=== PATIENT | male | born 1975 ===

== ENCOUNTER 2024-01-18 18:01 | Outpatient (REF) | payer MEDICAID, SELFPAY ==
[2024-01-18 17:31] LABS: ALT 28 U/L (16-63); AST 33 U/L (15-37); Albumin 2.9 g/dL (3.4-5.0); Alkaline Phosphatase 124 U/L (46-116); Anion Gap 8.9 mmol/L (3-11); BUN 13 mg/dL (7-18); Bilirubin, Total 1.36 mg/dL (0.2-1.0); CO2 24.1 mmol/L (21.0-32.0); CREATININE 0.9 mg/dL (0.70-1.30); Calcium 8.7 mg/dL (8.5-10.1); Chloride 110 mmol/L (98-107); Estimated GFR 105.35 (mL/min/1.73m2); Glucose 162 mg/dL (74-106); Magnesium 1.9 mg/dL (1.8-2.4); Potassium 4.2 mmol/L (3.5-5.1); Sodium 143 mmol/L (136-145); Total Protein 6.3 g/dL (6.4-8.2)
--- OUTSIDE RECORDS SUMMARY | 2024-01-18 18:02 | XMS_ITS | Continuity of Care Document ---
Author Name [facility] Organization [facility] Care Team Providers Care Agency Service Representative Name Role Phone [facility] Unavailable Unavailable Problems Combined list of problems from Department of Defense and Veterans Affairs facilities. It does not include entries that were removed or entered in error. Problem Status Onset Date Problem Type Date of Resolution Comments Source Diagnosis: ICD-10-CM R68.89 Other general symptoms and signs Active Diagnosis [facility] Immunizations Combined list of available immunizations from the Department of Defense and Veterans Affairs facilities. Immunization Series Date Given Administered By Site Reaction Lot Number CVX Code Drug It Operations Specialist Status Comments Source HEP A, ADULT 2023 52 complet ed [facility] A, ADULT 2023 52 complet ed [facility] Encounters Combined list of: 1) Encounters from Department of Veterans Affairs facilities going back up to thelast 18 months. 2) Encounters from the Department of Defense facilities going back up to 280 months. Location Location Details Encounter Type Encounter Number Reason For Visit Attending Provider ADM Date DC Date Status Disposition Source [facility] Outpatient Encounter [id number] 11/29 [facility] En[facility] [id number] 12/29 [facility] [id number] 01/09 [facility] [id number] 01/10 [facility] En[facility] [id number] 01/15 [facility] HC PRO PHONE CALL 11-20 MIN [id number] Diagnos is: ICD-10- CM R68.89 Other general symptom s and signs<b r/> CHIQUITA MCDONALD A 01/15 [facility] [place] [facility] Procedures Combined list of: 1) Procedures from Department of Veterans Affairs facilities going back up to thelast 18 months, not all [place] non-surgical procedures are included; 2) All procedures from the Department of Defense facilities. Procedure Procedure Type Code Date Perfomer Comments Sourc e INJECTION PROCEDURE FOR RETROGRADE URETHROCYSTOGRAPHY 09/10/2003 DoD INJECTION PROCEDURE FOR RETROGRADE URETHROCYSTOGRAPHY 07/13/2003 DoD INJECTION, METOCLOPRAMIDE HCL, UP TO 10 MG 07/01/2003 DoD UNCLASSIFIED DRUGS 06/30/2003 Do D INSERTION OF TEMPORARY INDWELLING BLADDER CATHETER; COMPLICATED (EG, ALTERED ANATOMY, FRACTURED CATHETER/BALLOON) 06/11/2003 DoD URINARY DRAINAGE BAG, LEG OR ABDOMEN, LATEX, WITH OR WITHOUT TUBE, WITH STRAPS, EACH 05/12/2003 DoD URINARY DRAINAGE BAG, LEG OR ABDOMEN, LATEX, WITH OR WITHOUT TUBE, WITH STRAPS, EACH 04/14/2003 DoD INSERTION OF TEMPORARY INDWELLING BLADDER CATHETER; COMPLICATED (EG, ALTERED ANATOMY, FRACTURED CATHETER/BALLOON) 03/13/2003 DoD URINARY SUSPENSORY WITH LEG BAG, WITH OR WITHOUT TUBE, EACH 03/12/2003 DoD RIGID PROCTOSIGMOIDOSCOPY 02/17/2003 DoD INJECTION, HYDROMORPHONE, UP TO 4 MG 02/16/2003 DoD DIAGNOSTIC ULTRASOUND OF ABDOMEN AND RETROPERITONEUM 02/10/2003 DoD OTHER OPEN REDUCTION OF FACIAL FRACTURE 02/10/2003 [facility] OPEN REDUCTION OF MALAR AND ZYGOMATIC FRACTURE 02/10/2003 [facility] OTHER SUPRAPUBIC CYSTOSTOMY 02/10/2003 [facility] OTHER CYSTOSCOPY 02/10/2003 [facility] AUTOMATIC BLOOD PRESSURE MONITOR 09/26/2002 DoD EXCISION OF RIB, PARTIAL 04/03/2001 DoD GROUP PSYCHOTHERAPY (OTHER THAN OF A MULTIPLE-FAMILY GROUP) 01/03/2001 DoD GROUP PSYCHOTHERAPY (OTHER THAN OF A MULTIPLE-FAMILY GROUP) 12/27/2000 DoD GROUP PSYCHOTHERAPY (OTHER THAN OF A MULTIPLE-FAMILY GROUP) 12/20/2000 DoD GROUP PSYCHOTHERAPY (OTHER THAN OF A MULTIPLE-FAMILY GROUP) 12/18/2000 DoD GROUP PSYCHOTHERAPY (OTHER THAN OF A MULTIPLE-FAMILY GROUP) 12/06/2000 DoD GROUP PSYCHOTHERAPY (OTHER THAN OF A MULTIPLE-FAMILY GROUP) 12/04/2000 DoD GROUP PSYCHOTHERAPY (OTHER THAN OF A MULTIPLE-FAMILY GROUP) 11/22/2000 DoD GROUP PSYCHOTHERAPY (OTHER THAN OF A MULTIPLE-FAMILY GROUP) 11/20/2000 DoD GROUP PSYCHOTHERAPY (OTHER THAN OF A MULTIPLE-FAMILY GROUP) 11/15/2000 DoD GROUP PSYCHOTHERAPY (OTHER THAN OF A MULTIPLE-FAMILY GROUP) 11/13/2000 DoD GROUP PSYCHOTHERAPY (OTHER THAN OF A MULTIPLE-FAMILY GROUP) 11/08/2000 [facility] THERAPEUTIC PROCEDURE, 1 OR MORE AREAS, EACH 15 MINUTES; THERAPEUTIC EXERCISES TO DEVELOP STRENGTH AND ENDURANCE, RANGE OF MOTION AND FLEXIBILITY 11/02/2000 DoD GROUP PSYCHOTHERAPY (OTHER THAN OF A MULTIPLE-FAMILY GROUP) 08/23/2000 DoD GROUP PSYCHOTHERAPY (OTHER THAN OF A MULTIPLE-FAMILY GROUP) 08/16/2000 [facility] PSYCHIATRIC DIAGNOSTIC INTERVIEW EXAMINATION 06/29/2000 [facility] INDIVIDUAL PSYCHOTHERAPY, INSIGHT ORIENTED, BEHAVIOR MODIFYING AND/OR SUPPORTIVE, IN AN OFFICE OR OUTPATIENT FACILITY, APPROXIMATELY 20 TO 30 MINUTES [id number] WITH THE PATIENT 06/19/2000 DoD INTERACTIVE GROUP PSYCHOTHERAPY 06/12/2000 DoD GROUP PSYCHOTHERAPY (OTHER THAN OF A MULTIPLE-FAMILY GROUP) 05/21/2000 DoD GROUP PSYCHOTHERAPY (OTHER THAN OF A MULTIPLE-FAMILY GROUP) 05/17/2000 [facility] PHYS/OTH QUALIFIED HEALTH CERTIFIED FORKLIFT OPERATOR QUALIFIED,EDUCATION,TRAIN,LIC ENSURE/REGULATION (WHEN APPLICABLE) EDUC SER RENDERED TO PATS IN A GRP SETTING (EG,,OBESITY,OR DIABETIC INSTRUCT) 05/16/2000 DoD GROUP PSYCHOTHERAPY (OTHER THAN OF A MULTIPLE-FAMILY GROUP) 05/15/2000 DoD GROUP PSYCHOTHERAPY (OTHER THAN OF A MULTIPLE-FAMILY GROUP) 05/14/2000 DoD PHYS/OTH QUALIFIED HEALTH CERTIFIED FORKLIFT OPERATOR QUALIFIED,EDUCATION,TRAIN,LIC ENSURE/REGULATION (WHEN APPLICABLE) EDUC SER RENDERED TO PATS IN A GRP SETTING (EG,,OBESITY,OR DIABETIC INSTRUCT) 05/11/2000 DoD GROUP PSYCHOTHERAPY (OTHER THAN OF A MULTIPLE-FAMILY GROUP) 05/11/2000 DoD GROUP PSYCHOTHERAPY (OTHER THAN OF A MULTIPLE-FAMILY GROUP) 05/10/2000 DoD PHYS/OTH QUALIFIED HEALTH CERTIFIED FORKLIFT OPERATOR QUALIFIED,EDUCATION,TRAIN,LIC ENSURE/REGULATION (WHEN APPLICABLE) EDUC SER RENDERED TO PATS IN A GRP SETTING (EG,,OBESITY,OR DIABETIC INSTRUCT) 05/09/2000 DoD GROUP PSYCHOTHERAPY (OTHER THAN OF A MULTIPLE-FAMILY GROUP) 05/09/2000 DoD GROUP PSYCHOTHERAPY (OTHER THAN OF A MULTIPLE-FAMILY GROUP) 05/08/2000 DoD PHYS/OTH QUALIFIED HEALTH CERTIFIED FORKLIFT OPERATOR QUALIFIED,EDUCATION,TRAIN,LIC ENSURE/REGULATION (WHEN APPLICABLE) EDUC SER RENDERED TO PATS IN A GRP SETTING (EG,,OBESITY,OR DIABETIC INSTRUCT) 05/07/2000 DoD GROUP PSYCHOTHERAPY (OTHER THAN OF A MULTIPLE-FAMILY GROUP) 05/07/2000 DoD GROUP PSYCHOTHERAPY (OTHER THAN OF A MULTIPLE-FAMILY GROUP) 05/04/2000 DoD GROUP PSYCHOTHERAPY (OTHER THAN OF A MULTIPLE-FAMILY GROUP) 05/03/2000 DoD PHYS/OTH QUALIFIED HEALTH CERTIFIED FORKLIFT OPERATOR QUALIFIED,EDUCATION,TRAIN,LIC ENSURE/REGULATION (WHEN APPLICABLE) EDUC SER RENDERED TO PATS IN A GRP SETTING (EG,,OBESITY,OR DIABETIC INSTRUCT) 05/02/2000 DoD GROUP PSYCHOTHERAPY (OTHER THAN OF A MULTIPLE-FAMILY GROUP) 05/01/2000 DoD GROUP PSYCHOTHERAPY (OTHER THAN OF A MULTIPLE-FAMILY GROUP) 04/30/2000 DoD GROUP PSYCHOTHERAPY (OTHER THAN OF A MULTIPLE-FAMILY GROUP) 04/05/2000 DoD GROUP PSYCHOTHERAPY (OTHER THAN OF A MULTIPLE-FAMILY GROUP) 03/26/2000 DoD INTERACTIVE GROUP PSYCHOTHERAPY 02/08/2000 DoD GROUP PSYCHOTHERAPY (OTHER THAN OF A MULTIPLE-FAMILY GROUP) 02/07/2000 DoD INTERACTIVE GROUP PSYCHOTHERAPY 12/07/1999 DoD INTERACTIVE GROUP PSYCHOTHERAPY 11/23/1999 [facility] INDIVIDUAL PSYCHOTHERAPY, INSIGHT ORIENTED, BEHAVIOR MODIFYING AND/OR SUPPORTIVE, IN AN OFFICE OR OUTPATIENT FACILITY, APPROXIMATELY 75 TO 80 MINUTES [id number] WITH THE PATIENT 11/21/1999 [facility] DETERMINATION OF VENOUS PRESSURE 05/06/1999 [facility] Social History Combined list of available smoking, tobacco, and other social history from Department of Defense and Veterans Affairs facilities. Social History Type Response Date Comment Sourc e Tobacco smoking status [facility] VA-TOBACCO USE EVERY DAY CIGARETTES 01/16/2024 [facility] History of tobacco use VA-TOBACCO NEVER USED OTHER TYPE 01/16/2024 [facility] This section is an empty social history section. DoD Plan of Care List of future care activities from Department of Veterans Affairs facilities. Additional future care activities may be listed in the Assessment and Plan section. Date/Time Care Activity Care Activity Detail Facili ty 01/23/2024 AMBULATORY - NONE AMBULATORY - NONE [facility] 01/23/2024 AMBULATORY - MEDICINE AMBULATORY - MEDICI [facility] 01/23/2024 AMBULATORY - NONE AMBULATORY - NONE [facility] 01/23/2024 Laboratory - Senior Data Modeler ry Order P4 GLU,BUN,CREAT,LYTES,CA LT GREEN(LI HEP) PLASMA [facility] 01/23/2024 Laboratory - Senior Data Modeler ry Order LIVER PROFILE LT GREEN(LI HEP) PLASMA [facility] 01/23/2024 Laboratory - Senior Data Modeler ry Order LIPOPROTEIN CHOLESTEROL FRACT. PANEL LT GREEN(LI HEP) PLASMA [facility] 01/23/2024 Laboratory - Senior Data Modeler ry Order THYROID TESTING CASCADE BLOOD(GOLD) SERUM [facility] 01/23/2024 Laboratory - Senior Data Modeler ry Order CBC NO DIFF BLOOD(LAV-EDTA-WB) [facility] 01/23/2024 Laboratory - Senior Data Modeler ry Order GLYCOHEMOGLOBIN (A1C ONLY) BLOOD(LAV-EDTA-WB) [facility]
--- OUTSIDE RECORDS SUMMARY | 2024-01-18 18:02 | XMS_ITS | Encounter Summary ---
Author Name [facility] [place] [facility] [place] Address [address] [place] [address] Selected Encounter This section includes the information on record at [place] for the Encounter. Date/Time Encounter Type Encounter Description Reason Pro vider Source Jan 11, 2024 09:16 AM Outpatient Encounter ADMIN PAT ACTIVTIES (INOCENCIONONCT) IHE Encounter Template Text not used by [place] Plan of Treatment: Future Appointments (+ 6 months) and Future Tests (+/- 45 days) The Plan of Treatment section includes future care activities for the patient from all [place] treatmentfacilities. This section includes future appointments and future orders which are active, pending or scheduled. Future Appointments This section includes appointments that were scheduled to occur 6 months from the date of the Encounter, up to a maximum of 20 appointments. The data comes from all [place] treatment facilities. Appointment Date/Time Appointment Type Appointme nt Facility Name Jan 16, 2024 10:00 AM AMBULATORY - NONE [facility] Jan 23, 2024 01:00 PM AMBULATORY - NONE [facility] Jan 23, 2024 01:00 PM AMBULATORY - MEDICINE [facility] Jan 23, 2024 02:00 PM AMBULATORY - NONE [facility] Active, Pending, and Scheduled Orders This section includes a listing of several types of active, pending, and scheduled orders, including clinic medications orders, diagnostic test orders, procedure orders and consult orders; where the start date of the order is 45 days before the date of the Encounter or 45 days after the date of theEncounter. The data comes from all [place] treatment facilities. Test Date/Time Test Type Test Details Facility Name Jan 23, 2024 12:00 AM Laboratory - Chemistry Order P4 GLU,BUN,CREAT,LYTES,CA LT GREEN(LI HEP) [facility] Jan 23, 2024 12:00 AM Laboratory - Chemistry Order LIVER PROFILE LT GREEN(LI HEP) PLASMA [facility] Jan 23, 2024 12:00 AM Laboratory - Chemistry Order LIPOPROTEIN CHOLESTEROL FRACT. PANEL LT GREEN(LI HEP) PLASMA [facility] Jan 23, 2024 12:00 AM Laboratory - Chemistry Order THYROID TESTING CASCADE BLOOD(GOLD) SERUM [facility] Jan 23, 2024 12:00 AM Laboratory - Chemistry Order CBC NO DIFF BLOOD(LAV-EDTA-WB) [facility] Jan 23, 2024 10:03 AM Laboratory - Chemistry Order GLYCOHEMOGLOBIN (A1C ONLY) BLOOD(LAV-EDTA-WB) [facility] Encounter Notes: All associated encounter notes This section contains the clinical notes associated to the Encounter. Date/Time Encounter Note(s) Provider Source Jan 07, 2024 09:16 AM NONVA NOTE: LOCAL TITLE: NonVA Medical Records STANDARD TITLE: NONVA NOTE DATE OF NOTE: JAN 07, 2024@09:16 ENTRY DATE: JAN 11, 2024@09:16:28 AUTHOR: JOELLE POWER COSIGNER: URGENCY: STATUS: COMPLETED NONVA 12/26/2023 & 01/03/2024 - LAB RESULTS 01/07/2024 - PRIMARY CARE OFFCE VISIT W/LABS [facility] MEDICINE /irene/ Joelle Power MRT Signed: 01/11/2024 09:18 Receipt Acknowledged By: 01/11/2024 10:38 /irene/ WARD URIBE M.D INTERNAL MEDICINE, [facility] JOELLE POWER [facility]
--- OUTSIDE RECORDS SUMMARY | 2024-01-18 18:02 | XMS_ITS | Encounter Summary ---
Author Name [facility] [place] [facility] [place] [facility] [place] Address [address] [place] [id number] Selected Encounter This section includes the information on record at [place] for the Encounter. Date/Time Encounter Type Encounter Description Reason Pro vider Source Dec 30, 2023 12:00 AM Outpatient Encounter EVENT (HISTORICAL) IHE Encounter Template Text not used by [place] Plan of Treatment: Future Appointments (+ 6 months) and Future Tests (+/- 45 days) The Plan of Treatment section includes future care activities for the patient from all [place] treatmentfacilities. This section includes future appointments and future orders which are active, pending or scheduled. Future Appointments This section includes appointments that were scheduled to occur 6 months from the date of the Encounter, up to a maximum of 20 appointments. The data comes from all [place] treatment facilities. Appointment Date/Time Appointment Type Appointme nt Facility Name Jan 16, 2024 10:00 AM AMBULATORY - NONE [facility] Jan 23, 2024 01:00 PM AMBULATORY - NONE [facility] Jan 23, 2024 01:00 PM AMBULATORY - MEDICINE [facility] Jan 23, 2024 02:00 PM AMBULATORY - NONE [facility] Active, Pending, and Scheduled Orders This section includes a listing of several types of active, pending, and scheduled orders, including clinic medications orders, diagnostic test orders, procedure orders and consult orders; where the start date of the order is 45 days before the date of the Encounter or 45 days after the date of theEncounter. The data comes from all [place] treatment facilities. Test Date/Time Test Type Test Details Facility Name Jan 23, 2024 12:00 AM Laboratory - Chemistry Order P4 GLU,BUN,CREAT,LYTES,CA LT GREEN(LI HEP) PLASMA SP [facility] Jan 23, 2024 12:00 AM Laboratory - Chemistry Order LIVER PROFILE LT GREEN(LI HEP) PLASMA [facility] Jan 23, 2024 12:00 AM Laboratory - Chemistry Order LIPOPROTEIN CHOLESTEROL FRACT. PANEL LT GREEN(LI HEP) PLASMA [facility] Jan 23, 2024 12:00 AM Laboratory - Chemistry Order THYROID TESTING CASCADE BLOOD(GOLD) [facility]UM [facility] Jan 23, 2024 12:00 AM Laboratory - Chemistry Order CBC NO DIFF BLOOD(LAV-EDTA-WB) [facility] Jan 23, 2024 10:03 AM Laboratory - Chemistry Order GLYCOHEMOGLOBIN (A1C ONLY) BLOOD(LAV-EDTA-WB) [facility] Immunizations: All administered on the encounter date This section contains immunizations associated to the Encounter. Immunization Series Date Issued Reaction Comments HEP A, ADULT Dec 30, 2023
--- OUTSIDE RECORDS SUMMARY | 2024-01-18 18:02 | XMS_ITS | Encounter Summary ---
Author Name [facility] [place] Organization [facility] [place] Address [address] [place] [address] Selected Encounter This section includes the information on record at [place] for the Encounter. Date/Time Encounter Type Encounter Description Reason Provider Source Jan 16, 2024 10:00 AM HC PRO PHONE CALL 11-20 MIN TELEPHONE PRIMARY CARE ICD-10-CM R68.89 Other general symptoms and signs CHARLENE MCDONALD RA [facility] Encounter Template Text not used by VA Assessments - Encounter Diagnoses This section includes the primary and secondary diagnoses documented for the Encounter. Date/Time Primary/Secondary Diagnosis Diagnosis Name Provider Source Jan 16, 2024 10:00 AM PRIMARY Other general symptoms and signs ULISES MCDONALD [facility] Plan of Treatment: Future Appointments (+ 6 months) and Future Tests (+/- 45 days) The Plan of Treatment section includes future care activities for the patient from all [place] treatmentfacilities. This section includes future appointments and future orders which are active, pending or scheduled. Future Appointments This section includes appointments that were scheduled to occur 6 months from the date of the Encounter, up to a maximum of 20 appointments. The data comes from all [place] treatment facilities. Appointment Date/Time Appointment Type Appointme nt Facility Name Jan 23, 2024 01:00 PM AMBULATORY - NONE [facility] Jan 23, 2024 01:00 PM AMBULATORY - MEDICINE [facility] Jan 23, 2024 02:00 PM AMBULATORY - NONE [facility] Active, Pending, and Scheduled Orders This section includes a listing of several types of active, pending, and scheduled orders, including clinic medications orders, diagnostic test orders, procedure orders and consult orders; where the start date of the order is 45 days before the date of the Encounter or 45 days after the date of theEncounter. The data comes from all [facility] facilities. Test Date/Time Test Type Test Details Facility Name Jan 23, 2024 12:00 AM Laboratory - Chemistry Order P4 GLU,BUN,CREAT,LYTES,CA LT GREEN(LI HEP) PLASMA [facility] Jan 23, 2024 12:00 AM Laboratory - Chemistry Order LIVER PROFILE LT GREEN(LI HEP) PLASMA [facility] Jan 23, 2024 12:00 AM Laboratory - Chemistry Order LIPOPROTEIN CHOLESTEROL FRACT. PANEL LT GREEN(LI HEP) PLASMA [facility] Jan 23, 2024 12:00 AM Laboratory - Chemistry Order THYROID TESTING CASCADE BLOOD(GOLD) SERUM [facility] Jan 23, 2024 12:00 AM Laboratory - Chemistry Order CBC NO DIFF BLOOD(LAV-EDTA-WB) [facility] Jan 23, 2024 10:03 AM Laboratory - Chemistry Order GLYCOHEMOGLOBIN (A1C ONLY) BLOOD(LAV-EDTA-WB) [facility] Social History: Smoking Status (Most current) and Tobacco Use (All prior to encounter date) This section includes the most current, and the historical, smoking and tobacco- related health factors from the [place] facility where the Encounter took place. Current Smoking Status This section includes the most current smoking, or tobacco-related health factor, from the [place] facility where the Encounter took place. Date/Time Current Smoking Status Comment Anibal christensen Jan 16, 2024 10:00 AM [place]-TOBACCO USE EVERY DAY [facility] Tobacco Use History This section includes a history of the smoking, or tobacco-related health factors, that were collected on or before the date of the Encounter. The data comes from the [place] facility where the Encounter took place. Date/Time Smoking Status/Tobacco Use Comment Parth seaman Jan 16, 2024 10:00 AM [place]-TOBACCO USE EVERY DAY [facility] Encounter Notes: All associated encounter notes This section contains the clinical notes associated to the Encounter. Date/Time Encounter Note(s) Provider Source Jan 16, 2024 09:23 AM PRIMARY CARE TELEP DENISSE ENCOUNTER NOTE: LOCAL TITLE: Telephone Note/Dipping Machine Operator STANDARD TITLE: PRIMARY CARE TELEPHONE ENCOUNTER NOTE DATE OF NOTE: JAN 16, 2024@09:23 ENTRY DATE: JAN 16, 2024@09:23:15 AUTHOR: CHIQUITA MCDONALD COSIGNER: URGENCY: STATUS: COMPLETED ONEAL SOLANO [phone] PROFESSIONAL BENEFITS SALES CONSULTANT VISIT S/ 48yo WM who is regularly followed by: MELY Adams The patient has the following concerns: 1) Wants to establish care- needs f/u on health concers ROS: Appetite-good Weight-lost 40 lbs since Dec 02- mostly fluid Vision- not good last eye visit- no eye care Hearing- tinnitus Exercise- not a lot lately Nutrition-restriction for sodium- tries to eat well. Cardiac-no chest pain, swelling, PND, orthopnea Pulmonary-no SOB, cough GI- abd pain frequently, no nausea, vomiting, incontinence, hematochezia -no incontinence, hematuria, dysuria. 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 MEDS: SPIROLACTONE 50 MG TAB- 3 TABS DAILY FUROSEMIDE 20 MG TAB- 3 TABS DAILY CARVEDILOL 12.5 MG- 1 TAB WITH FOOD 2 TIMES DAILY PANTOPRAZOLE SODIUM 40 MG TAB DELAYED RELEASE- 1 TAB 1/2 TO 1 HOUR BEFORE MORNING MEAL DAILY ALBUTEROL SULFATE HFA 108 (90 BASE) MCG/ACT AEROSOL SOLLUTION 2 PUFFS INHALATION EVERY 4 HOURS NEEDED Currently on amoxacillin for acute cough ALLERGIES: NKA SCREEN: Tob: Etoh: dT Pneumovax Fluvax Hep C Ab PSA (pros and cons of having PSA done discussed today) Colon CA Gx3 Chol FAMILY HISTORY: F heart disease, CA M () = SOCIAL HISTORY: Lives with parents Occupation: none Service:[employer] Education: high school Seat Belt + smoke detectors + Advance Directives: information provided O/ Wgt 292 Hgt 5'9 BODY MASS INDEX - NO HEIGHTS FOUND BP HR RR Pain RVHome Work Phone: Cell phone: Suicide Screen: C-SSRS Screening [place]-Suicide Severity Rating Scale (C-SSRS Screener) 1. Over the past month, have you wished you were or wished you could go to sleep and not wake up? No 2. Over the past month, have you had any actual thoughts of killing yourself? No 3. Over the past month, have you been thinking about how you might do this? No 4. Over the past month, have you had these thoughts and had some intention of acting on them? No 5. Over the past month, have you started to work out or worked out the details of how to kill yourself? No 6. If yes, at any time in the past month did you intend to carry out this plan? Response not required due to responses to other questions. 7. In your lifetime, have you ever done anything, started to do anything, or prepared to do anything to end your life (for example, collected pills, obtained a gun, gave away valuables, went to the roof but didn't jump)? No 8. If YES, was this within the past 3 months? Response not required due to responses to other questions. Toxic Exposure Screening: The [place]/caregiver was asked if they believe the experienced any toxic exposure(s), such as Airborne Hazards and Open Burn Pit, [place] War related exposures, Agent [place], Radiation, contaminated water at [place] or other such exposures, while serving in the Armed Forces. [place]/caregiver doesn't know of concerns about [place] exposure to harmful substances while serving in the Armed Forces. Printed information was offered and contact information for local resources were provided if requested. No questions at this time /caregiver was informed of local points of contact. Contact information for local resources: Benefits/Claims Questions: [facility] Enrollment: Eligibility and Enrollment: Prisca Guajardo, [phone] Registry: Tonny Joseph, Environmental Health Coordinator, [phone] Tobacco Use Screening: The patient smokes cigarettes every day. The patient has never used other types of tobacco. COVID-19 Immunization: Homelessness/Food Insecurity Screen: In the past 2 months, have you been living in stable housing that you own, rent, or stay in as part of a household? Yes - Living in stable housing. Are you worried or concerned that in the next 2 months you may NOT have stable housing that you own, rent, or stay in as part of a household? No - Not worried about housing near future The [place] reports the following: Within the past 12 months, you worried whether your food would run out before you got money to buy more. Often true Within the past 12 months, the food you bought just didn't last and you didn't have money to get more. Often true No referral for additional assistance requested by . Reason: vet is currently receiving asst Alcohol Use Screen (AUDIT-C): Alcohol Screen: SCREEN FOR ALCOHOL (AUDIT-C) An alcohol screening test (AUDIT-C) was positive (score=11). 1. How often did you have a drink containing alcohol in the past year? Consider a drink to be a 12 ounce can or bottle of regular beer, 8 ounces of malt liquor, a 5 ounce glass of table wine, or a 1.5 ounce shot of liquor (like scotch, gin, or vodka). Four or more times a week 2. How many drinks containing alcohol did you have on a typical day when you were drinking in the past year? Seven to nine drinks 3. How often did you have six or more drinks on one occasion in the past year? Daily or almost daily Licensed Independent Provider notified of positive screen and need for follow-up. Name of provider notified: has not had a drink in 46 days RHS Screen: RHS Screen Environmental Check Screening was not completed at this time due to: Other: phone visit Avg Risk Colorectal Cancer Screen: AVERAGE RISK colorectal cancer screening is due based on information available to this clinical reminder MST Screening: Patient denies experiencing sexual trauma (MST). Medication Reconciliation: Perform Medication Reconciliation JLV Link Data on this list may not be complete. Please check JLV. Allergies/ADRs (Tool #5) FACILITY ALLERGY/ADR -------- No Remote Allergy/ADR Data available for this patient [facility] No Allergy Assessment Completed Med [facility] (Tool #1) INCLUDED IN THIS LIST: Alphabetical list of active outpatient prescriptions dispensed from this VA (local) and dispensed from another VA or DoD facility (remote) as well as inpatient orders (local pending and active), local clinic medications, locally documented non-VA medications, and local prescriptions that have or been discontinued in the past 90 days. Non-VA Meds Last Documented On: Data not found NOTE The display of VA prescriptions dispensed from another [place] or [facility] facility (remote) is limited to active outpatient prescription entries matched to National Drug File at the originating site and may not include some items such as investigational drugs, compounds, etc. NOT INCLUDED IN THIS LIST: Medications self-entered by the patient into personal health records (i.e. Simple IT) are NOT included in this list. Non-VA medications documented outside this [place], remote inpatient orders (regardless of status) and remote clinic medications are NOT included in this list. The patient and provider must always discuss medications the patient is taking, regardless of where the medication was dispensed or obtained. SUPPLIES Comments: medications noted in DIESEL INSTRUCTOR intake The patient's Essential Medication List for Review was used for reconciliation to address additions, deletions, and changes as reported by the patient/caregiver. The patient/caregiver indicates that medications are being taken as documented as described above. Was medication education provided for new medications or changes to medications? (including medication name, dose, route, reason for use, and potential side effects). No. review of meds ordered by outside provider Preferred Language: Preferred Language: Tunisian Sexual Orientation: The patient thinks of their sexual orientation as: Reminder deferred for this visit. PTSD Screening: PC-PTSD-5 A PTSD screening test (PC-PTSD-5) was positive (score=4). IN THE PAST MONTH, have you ever had any experience that was so frightening, horrible or traumatic. For example: A serious accident or fire a physical or sexual assault or abuse An earthquake or flood A war Seeing someone be killed or seriously injured Having a loved one through homicide or suicide 1. Have you ever experienced this kind of event? YES 2. Had nightmares about the event(s) or thought about the event(s) when you did not want to? YES 3. Tried hard not to think about the event(s) or went out of your way to avoid situations that reminded you of the event(s)? YES 4. Been constantly on guard, watchful, or easily startled? YES 5. Apison numb or detached from people, activities, or your surroundings? YES 6. Apison guilty or unable to stop blaming yourself or others for the event(s) or any problems the event(s) may have caused? NO Licensed Independent Provider notified of positive screen and need for follow-up. Name of provider notified: Dr. Angela Brandt /irene/ CHIQUITA MCDONALD RN Signed: 01/16/2024 10:30 CHIQUITA MCDONALD [facility]
--- OUTSIDE RECORDS SUMMARY | 2024-01-18 18:02 | XMS_ITS | Encounter Summary ---
Author Name Department of Vetera Affairs ([place]) Organization [place] Address [address] [place] [id number] Selected Encounter This section includes the information on record at [place] for the Encounter. Date/Time Encounter Type Encounter Description Reason Pro vider Source Nov 30, 2023 12:00 AM Outpatient Encounter EVENT (HISTORICAL) IHE Encounter Template Text not used by [place] Plan of Treatment: Future Appointments (+ 6 months) and Future Tests (+/- 45 days) The Plan of Treatment section includes future care activities for the patient from all VA treatmentfacilities. This section includes future appointments and future orders which are active, pending or scheduled. Future Appointments This section includes appointments that were scheduled to occur 6 months from the date of the Encounter, up to a maximum of 20 appointments. The data comes from all [place] treatment facilities. Appointment Date/Time Appointment Type Appointme nt Facility Name Jan 16, 2024 10:00 AM AMBULATORY - NONE [facility] Jan 23, 2024 01:00 PM AMBULATORY - NONE [facility] Jan 23, 2024 01:00 PM AMBULATORY [facility]ICINE [facility] Jan 23, 2024 02:00 PM AMBULATORY - NONE [facility] Immunizations: All administered on the encounter date This section contains immunizations associated to the Encounter. Immunization Series Date Issued Reaction Comments HEP A, ADULT Nov 30, 2023
--- OUTSIDE RECORDS SUMMARY | 2024-01-18 18:02 | XMS_ITS | Encounter Summary ---
Author Name Department of Vetera Affairs ([place]) Organization Department of Vetera Affairs [place] Address [address] [place] [address] Selected Encounter This section includes the information on record at [place] for the Encounter. Date/Time Encounter Type Encounter Description Reason Pro vider Source Jan 10, 2024 12:21 PM Outpatient Encounter TELEPHONE CASE MANAGEMENT IHE Encounter Template Text not used by [place] Plan of Treatment: Future Appointments (+ 6 months) and Future Tests (+/- 45 days) The Plan of Treatment section includes future care activities for the patient from all [place] treatmentfacilities. This section includes future appointments and future orders which are active, pending or scheduled. Future Appointments This section includes appointments that were scheduled to occur 6 months from the date of the Encounter, up to a maximum of 20 appointments. The data comes from all [place] treatment facilities. Appointment Date/Time Appointment Type Appointme nt Facility Name Jan 16, 2024 10:00 AM AMBULATORY - NONE [facility] Jan 23, 2024 01:00 PM AMBULATORY - NONE [facility] Jan 23, 2024 01:00 PM AM[facility]ULATORY - [facility]ICINE [facility] Jan 23, 2024 02:00 PM AMBULATORY - NONE [facility] Active, Pending, and Scheduled Orders This section includes a listing of several types of active, pending, and scheduled orders, including clinic medications orders, diagnostic test orders, procedure orders and consult orders; where the start date of the order is 45 days before the date of the Encounter or 45 days after the date of theEncounter. The data comes from all [facility]. Test Date/Time Test Type Test Details Facility Name Jan 23, 2024 12:00 AM Laboratory - Chemistry Order P4 GLU,BUN,CREAT,LYTES,CA LT GREEN(LI HEP) PLASMA [facility] Jan 23, 2024 12:00 AM Laboratory - Chemistry Order LIVER PROFILE LT GREEN(LI HEP) PLASMA [facility] Jan 23, 2024 12:00 AM Laboratory - Chemistry Order LIPOPROTEIN CHOLESTEROL FRACT. PANEL LT GREEN(LI HEP) PLASMA [facility] Jan 23, 2024 12:00 AM Laboratory - Chemistry Order THYROID TESTING CASCADE BLOOD(GOLD) SERUM [facility] Jan 23, 2024 12:00 AM Laboratory - Chemistry Order CBC NO DIFF BLOOD(LAV-EDTA-WB) [facility] Jan 23, 2024 10:03 AM Laboratory - Chemistry Order GLYCOHEMOGLOBIN (A1C ONLY) BLOOD(LAV-EDTA-WB) [facility] Encounter Notes: All associated encounter notes This section contains the clinical notes associated to the Encounter. Date/Time Encounter Note(s) Provider Source Jan 10, 2024 01:50 PM ADDENDUM: LOCAL TITLE: Addendum STANDARD TITLE: ADDENDUM DATE OF NOTE: JAN 10, 2024@13:50:24 ENTRY DATE: JAN 10, 2024@13:50:25 AUTHOR: NATE MCAMNUS EXP COSIGNER: URGENCY: STATUS: COMPLETED Patient assigned to LIT PACT [facility], scheduled for 60 min. appt. 01/23/24 Records have been requested from the following, medical records will be forwarded to Pact Team and HIMS for scanning. >Primary Care with [facility] Appointment letter mailed: email, address and phone number confirmed. Patient encouraged to bring all active medications and supplements to their appt. /irene/ NATE MCMANUS Signed: 01/10/2024 13:51 Receipt Acknowledged By: 01/10/2024 16:29 /es/ THELMA TARANGO LPN 01/10/2024 15:53 /es/ WARD TOBAR Registered Nurse for CHIQUITA MCDONALD 01/10/2024 14:21 /es/ DELANEY FERNANDEZ ====== --- Original Document --- 01/10/24 Case Management/Rural Health: TC from Kay NADINE Arreola, from [facility]: 14 minutes Kay calls in the presence of the [place] to inquire how the can become connected with a PCP. This appeals writer reviewed his enrollment, and reported that a request will be placed to schedule with the [facility]. [place] is in agreement. reports changes to his mailing address and telephone #. New mailing address: [place] [address] [address] [place] [address] New /es/ LISA ALONZO Signed: 01/10/2024 12:33 Receipt Acknowledged By: 01/10/2024 13:50 /irene/ [facility] Jan 10, 2024 12:22 PM FUNERAL DIRECTOR AND EMBALMER NOTE: LOCAL TITLE: Case Management/Rural Health STANDARD TITLE: FUNERAL DIRECTOR AND EMBALMER NOTE DATE OF NOTE: JAN 10, 2024@12:22 ENTRY DATE: JAN 10, 2024@12:22:43 AUTHOR: LISA ALONZO EXP COSIGNER: URGENCY: STATUS: COMPLETED Case Management/Rural Health Has ADDENDA TC from Kay NADINE Arreola, from [facility]: 14 minutes Kay calls in the presence of the to inquire how the [place] can become connected with a PCP. This appeals writer reviewed his enrollment, and reported that a request will be placed to schedule with the [facility]. [place] is in agreement. [place] reports changes to his mailing address and telephone #. New mailing address: [facility] [address] [place] [id number] New /es/ LISA ALONZO Signed: 01/10/2024 12:33 Receipt Acknowledged By: 01/10/2024 13:50 /irene/ NATE MCMANUS 01/10/2024 ADDENDUM STATUS: COMPLETED Patient assigned to LIT PACT [facility], scheduled for 60 min. appt. 01/23/24 Records have been requested from the following, medical records will be forwarded to Pact Team and HIMS for scanning. >Primary Care with [facility] Appointment letter mailed: email, address and phone number confirmed. Patient encouraged to bring all active medications and supplements to their appt. /irene/ NATE MCMANUS Signed: 01/10/2024 13:51 Receipt Acknowledged By: 01/10/2024 16:29 /es/ THELMA TARANGO LPN 01/10/2024 15:53 /es/ WARD TOBAR Registered Nurse for CHIQUITA Calin MCDONALD 01/10/2024 14:21 /es/ DELANEY FERNANDEZ 01/11/2024 ADDENDUM STATUS: COMPLETED Medical records received, forwarded to [facility] for scanning and pact team for review. /irene/ NATE MCMANUS Signed: 01/11/2024 09:07 LISA ALONZO OC
--- OUTSIDE RECORDS SUMMARY | 2024-01-18 18:02 | XMS_ITS | Encounter Summary ---
Author Name Department [place] Organization [place] Address [address] [place] [address] Selected Encounter This section includes the information on record at [place] for the Encounter. Date/Time Encounter Type Encounter Description Reason Pro vider Source Jan 16, 2024 09:15 AM Outpatient Encounter PRIMARY CARE/MEDICINE IHE Encounter Template Text not used by [place] Plan of Treatment: Future Appointments (+ 6 months) and Future Tests (+/- 45 days) The Plan of Treatment section includes future care activities for the patient from all [place] treatmentfacilities. This section includes future appointments and future orders which are active, pending or scheduled. Future Appointments This section includes appointments that were scheduled to occur 6 months from the date of the Encounter, up to a maximum of 20 appointments. The data comes from all [place] treatment facilities. Appointment Date/Time Appointment Type Appointme nt Facility Name Jan 23, 2024 01:00 PM AMBULATORY - NONE [facility] Jan 23, 2024 01:00 PM AMBULATORY - MEDICINE [facility] Jan 23, 2024 02:00 PM AMBULATORY [...] of theEncounter. The data comes from all [facility]. Test Date/Time Test Type Test Details Facility Name Jan 23, 2024 12:00 AM Laboratory - Chemistry Order P4 GLU,BUN,CREAT,LYTES,CA LT GREEN(LI HEP) PLASMA [facility] Jan 23, 2024 12:00 AM Laboratory - Chemistry Order LIVER PROFILE LT GREEN(LI HEP) PLASMA [facility] Jan 23, 2024 12:00 AM Laboratory - Chemistry Order LIPOPROTEIN CHOLESTEROL FRACT. PANEL LT GREEN(LI HEP) PLASMA [facility] Jan 23, 2024 12:00 AM Laboratory - Chemistry Order THYROID TESTING CASCADE BLOOD(GOLD) SERUM [facility] Jan 23, 2024 12:00 AM Laboratory - Chemistry Order CBC NO DIFF BLOOD(LAV-EDTA-WB) [facility] Jan 23, 2024 10:03 AM Laboratory - Chemistry Order GLYCOHEMOGLOBIN (A1C ONLY) BLOOD(LAV-EDTA-WB) [facility] Encounter Notes: All associated encounter notes This section contains the clinical notes associated to the Encounter. Date/Time Encounter Note(s) Provider Source Jan 16, 2024 09:20 AM NURSING IMMUNIZATI ON NOTE: LOCAL TITLE: IMMUNIZATION AND VACCINATION NOTE STANDARD TITLE: NURSING IMMUNIZATION NOTE DATE OF NOTE: JAN 16, 2024@09:20:01 ENTRY DATE: JAN 16, 2024@09:20:01 AUTHOR: CHIQUITA MCDONALD EXP COSIGNER: URGENCY: STATUS: COMPLETED Documented: HEP A, ADULT Historical Date Administered: Nov 30, 2023 Outside Location: [facility] Provider Information Source: FROM OTHER PROVIDER Documented: HEP A, ADULT Historical Date Administered: Dec 30, 2023 Outside Location: [facility] Provider Information Source: FROM OTHER PROVIDER /irene/ CHIQUITA MCDONALD RN Signed: 01/16/2024 09:20 CHIQUITA MCDONALD [facility]
== END 2024-01-18 18:02 | disposition home or self-care (01) ==
LOC: LBN 18:01
PROVIDERS: PCP Nurse Practitioner Family; Visit Provider Nurse Practitioner Family
DX: K70.11 Alcoholic hepatitis with ascites (principal); F10.10 Alcohol abuse, uncomplicated
CPT/HCPCS: 80053; 83735